=== PATIENT | male | born 1965 | race Caucasian/White ===

== ENCOUNTER 2017-06-22 15:38 | Emergency (ER) | payer SELFPAY ==
[~2017-06-22] VITALS: Ht 177.8 cm; Wt 59.0 kg
[2017-06-22 16:29] VITALS: BP 139/83
== END 2017-06-22 17:23 | disposition left against medical advice (07) ==
LOC: ER 15:38 → EDBD 15:38 → ER 17:23
DX: S00.83XA Contusion of other part of head, initial encounter (principal); Y08.89XA Assault by other specified means, initial encounter; Y93.89 Activity, other specified; Y92.098 Other place in other non-institutional residence as the place of occurrence of the external cause; Y99.8 Other external cause status
CPT/HCPCS: 99283; Z7610